=== PATIENT | male | born 1955 | race Caucasian/White ===

== ENCOUNTER → 2021-03-19 | Day surgery (SDC) | payer BC ==
[~2021-03-19] VITALS: Ht 177.8 cm; Wt 79.4 kg
[~2021-03-19] MED LIST: CENTRUM SILVER1 EAC2 PO; CHILDREN'S ASPI81 M1 PO; COLACE 100 MG100 MG PO; FISH OIL 1,0001 EAC9 PO; IBUPROFEN 200200 M1 PO; LEVOTHYROXINE50 MCG PO; METOPROLOL SUCC25 M1 PO; MIRALAX17 GM PO; OXYCODONE HCL10 MG PO; ROSUVASTATIN CA40 MG PO; TAMSULOSIN HCL0.4 MG PO; TYLENOL325 MG PO
[2021-03-19 10:58] VITALS: BP 149/84
[2021-03-19 13:53] VITALS: BP 149/84
== END | disposition home or self-care (01) ==
LOC: OR 06:09
PROVIDERS: ATTEND Surgery
DX: K40.90 Unilateral inguinal hernia, without obstruction or gangrene, not specified as recurrent (principal); I10 Essential (primary) hypertension; E78.00 Pure hypercholesterolemia, unspecified; E03.9 Hypothyroidism, unspecified; I25.2 Old myocardial infarction; N40.0 Benign prostatic hyperplasia without lower urinary tract symptoms; Z98.890 Other specified postprocedural states; Z20.822 Contact with and (suspected) exposure to COVID-19; Z79.899 Other long term (current) drug therapy; F17.210 Nicotine dependence, cigarettes, uncomplicated; Z85.828 Personal history of other malignant neoplasm of skin
CPT/HCPCS: 50010; 50101; 50411; 50555; 50854; 50984; 52265; 52266; 53307; 53310; 54022; 54118; 56462; 56525; 56526; 58574; 58911; 62110; 62900; 70005